=== PATIENT | male | born 1985 | race Caucasian/White ===

== ENCOUNTER 2017-04-09 15:23 | Emergency (ER) | payer BC ==
[~2017-04-09] VITALS: Ht 182.9 cm; Wt 95.5 kg
[~2017-04-09 15:23] MED LIST: NO HOME MEDICATIONS; NORCO 325 MG-51 TAB PO
[2017-04-09 19:19] VITALS: BP 138/94
== END 2017-04-09 19:20 | disposition short-term general hospital (02) ==
LOC: ED 15:23
DX: S43.015A Anterior dislocation of left humerus, initial encounter (principal); X50.0XXA Overexertion from strenuous movement or load, initial encounter; Y92.009 Unspecified place in unspecified non-institutional (private) residence as the place of occurrence of the external cause
CPT/HCPCS: A4565; J2550; J3010; J3360

== ENCOUNTER → 2018-10-01 | Outpatient (CLI) | payer OTHER | LOC: RAD 07:00 | DX: S42.292A Other displaced fracture of upper end of left humerus, initial encounter for closed fracture (principal); S43.432A Superior glenoid labrum lesion of left shoulder, initial encounter; M25.412 Effusion, left shoulder ==

== ENCOUNTER → 2023-09-10 | Outpatient (CLI) | payer BC | LOC: RAD 09:46 | DX: M51.36 Other intervertebral disc degeneration, lumbar region (principal) ==